=== PATIENT | female | born 1965 | race Caucasian/White ===

== ENCOUNTER → 2017-02-10 | Outpatient (CLI) | payer OTHER | LOC: FIMAGING 10:39 | PROVIDERS: ATTEND Obstetrics & Gynecology | DX: Z12.31 Encounter for screening mammogram for malignant neoplasm of breast (principal) | CPT/HCPCS: G0202 ==

== ENCOUNTER 2017-09-08 11:48 | Day surgery (SDC) | payer OTHER ==
--- NOTE | 2017-09-08 07:33 | PDGENHP ---
History & Physical Chief Complaint: Menorrhagia, Abnormal uterine bleeding, Abnormal pelvic US, Acute anemia History of Present Illness: 52 yo oscar-menopausal female being evaluated for acute anemia in the context of heavy ongoing, irregular bleeding. Had US and EBX in our office and recent H/H showing a Hg of 7.4 - symptomatic from this anemia with dizziness, lightheadedness, fatigue. Discussed options and she's interested in DxHSC with removal of polyp and sampling of endometrium, followed by more definitive solution with endometrial ablation. EBX benign with disordered proliferative endometrium. Pertinent Past, Social, Family History: Non-contributory Relevant Physical Exam: In office: NAD, tired. Heart RRR. Lungs CTAB Assessment & Plan Assessment: 1. Menorrhagia 2. Abnormal uterine bleeding 3. Abnormal pelvic US, question endometrial polyp 4. Acute blood loss anemia Plan: DxHSC, Endometrial polypectomy/sampling PRN, Rachel endometrial ablation - Routine preop orders placed - no abx needed. - CBC and UPT in preop, T&S if not already updated in system. - RBA discussed and consents signed in office at preop visit, will give postop RX for [place] and dc instruction sheet in PACU.
[2017-09-08] MEDS ORDERED: LR 1,000 ML IV ONE (12:26)
[2017-09-08 12:32] VITALS: PULSE 74
[2017-09-08 13:28] LABS: PLATELET COUNT 275 10^3/uL (150-400)
[2017-09-08] MEDS ORDERED: MIDAZOLAM 2 MG/2 ML VIAL IVP ONE (14:26)
--- NOTE | 2017-09-08 14:26 | PDANEPAE ---
ANE History of Present Illness Anemia secondary to uterine bleeding ANE Past Medical History - Cardiovascular History Hx Hypertension: No Hx Arrhythmias: No Hx Chest Pain: No Hx Coronary Artery / Peripheral Vascular Disease: No Hx CHF / Valvular Disease: No Hx Palpitations: No - Pulmonary History Hx COPD: No Hx Asthma/Reactive Airway Disease: No Hx Recent Upper Respiratory Infection: No Hx Oxygen in Use at Home: No Hx Sleep Apnea: No Sleep Apnea Screening Result - Last Documented: Negative - Neurologic History Hx Cerebrovascular Accident: No Hx Seizures: No Hx Dementia: No Neurologic History Comment: MIGRAINES OCCAS - Endocrine History Hx Diabetes: No - Renal History Hx Renal Disorders: No Renal History Comment: POLYCYSTIC R KIDNEY SINCE 20s - Liver History Hx Hepatic Disorders: No - Neurological & Psychiatric Hx Hx Neurological and Psychiatric Disorders: No - Cancer History Hx Cancer: No - Congenital Disorder History Hx Congenital Disorders: No - GI History Hx Gastrointestinal Disorders: No - Other Health History Other Health History: ANEMIA - CAUSED BY EXCESSIVE MENSES/BLEEDING X ONE MONTH - Chronic Pain History Chronic Pain: Yes (ARTHRITIS TU KNEES) - Surgical History Prior Surgeries: D&C X2 ANE Review of Systems Review of Systems: - Exercise capacity METS (RN): 4 METS ANE Patient History - Allergies Allergies/Adverse Reactions: No Known Allergies Allergy (Unverified 09/01/17 14:54) - Home Medications Home Medications: Iron 09/01/17 [Last Taken 1 Day Ago ~09/07/17] Multivitamin 09/01/17 [Last Taken 1 Week Ago ~09/01/17] - NPO status NPO Since - Liquids (Date): 09/07/17 NPO Since - Liquids (Time): 20:00 NPO Since - Solids (Date): 09/07/17 NPO Since - Solids (Time): 20:00 - Anes Hx Anes Hx: no prior problems - Smoking Hx Smoking Status: Never smoked - Family Anes Hx Family Hx Anesthesia Complications: NEG ANE Labs/Vital Signs - Labs Result Diagrams: 09/08/17 07:28 - Vital Signs Blood Pressure: 132/98 Heart Rate: 74 Respiratory Rate: 18 O2 Sat (%): 93 Height: 162.56 cm Weight: 77.111 kg ANE Physical Exam - Airway Neck exam: FROM Mallampati Score: Class 2 Mouth exam: normal dental/mouth exam - Pulmonary Pulmonary: no respiratory distress - Cardiovascular Cardiovascular: regular rate and rhythym - ASA Status ASA Status: II ANE Anesthesia Plan Anesthesia Plan: GA w LMA, MAC
[2017-09-08] MEDS ORDERED: BUPIVACAINE 0.25% 30 ML SDV ONE (14:29)
[2017-09-08] MEDS ORDERED: SILVER NITRATE APPLICATOR 1 APPL TP ONE (14:30)
[2017-09-08] MEDS ORDERED: MIDAZOLAM 2 MG/2 ML VIAL ONE (14:35)
[2017-09-08] MEDS ORDERED: fentaNYL 100 MCG/2 ML INJ ONE (14:39)
[2017-09-08] MEDS ORDERED: PROPOFOL/EMULSION 500 MG/50 ML BOTTLE IV ONE (14:39)
[2017-09-08] MEDS ORDERED: LIDOCAINE 2% 5 ML SDV ONE (14:41)
[2017-09-08] MEDS ORDERED: OPIUM/BELLADONNA ALKALO SUPP PR ONE (14:48)
[2017-09-08] MEDS ORDERED: PROPOFOL 200 MG/20 ML VIAL ONE (15:23)
[2017-09-08] MEDS ORDERED: PROMETHAZINE HCL 25 MG/ML INJ IVP PRN (15:34)
[2017-09-08] MEDS ORDERED: fentaNYL 100 MCG/2 ML INJ IVP PRN (15:34)
[2017-09-08] MEDS ORDERED: NALOXONE HCL 0.4 MG/ML INJ IVP PRN (15:34)
[2017-09-08] MEDS ORDERED: ONDANSETRON 4 MG/2 ML VIAL IVP PRN (15:34)
--- NOTE | 2017-09-08 15:49 | POSTANESTH ---
Post Anesthetic Evaluation Cardiovascular Status: Normal, Stable Respiratory Status: Normal, Stable Level of Consciousness/Mental Status: Can Participate in Eval Pain Control: Adequate, Prn Tx Ordered Nausea/Vomiting Control: Adequate, Prn Tx Ordered Complications Possibly Related to Anesthesia: None Noted
--- NOTE | 2017-09-08 16:07 | SUROPNOTE ---
[facility] Operative Report - Surgery Date of Operation: 09/08/17 Surgeon: Nate Gomez Reactor Kettle Operator: None Anesthesia: IV Sedation (MAC) Pre-op Diagnosis: Menorrhagia, Acute blood loss anemia Post-op Diagnosis: Endometrial polyps, Same Procedure: Dx hysteroscopy, Endometrial polypectomy/sampling, Endometrial ablation Findings: Normal external genitalia, mult small endometrial polyps, normal cavity Inf/Abcess present in the surg proc area at time of surgery?: No EBL: Minimal Total fluids administered: Deficit 400cc Complications: None Specimen(s): Endometrial polyp fragments and sampling Technique: The patient was taken to the operating room where her identity and planned procedure were confirmed during time-out. The patient was placed under general anesthesia without issue. When anesthesia was found to be adequate, the patient was prepped and draped in the normal sterile fashion in dorsal lithotomy position in Remigio stirrups. No antibiotics were indicated nor given. She had voided just prior to OR so no catheterization was needed. A paracervical block was placed with 5cc of local anesthetic with epi at 4:00 and 8:00 locations at the cervico-vaginal junction. Anterior lip was grasped with a single tooth tenaculum at the 12 o'clock position. A uterine sound was then passed through the cervical os to the uterine fundus giving a sounding length of 9cm. The cervical length was measured at 2.5cm, giving us a cavity length of 6.5cm. The cervix was serially dilated to allow the 6mm hysteroscope. This scope was inserted and multiple polyps visualized, which were subsequently removed with the TruClear device. Throughout hysteroscopy some fluid was not being caught by the under-buttock drape and ended up on the floor , distorting our fluid deficit. The scope was removed and the cervix dilated to 8mm to allow Rachel device. Settings entered into generator, device inserted per protocol. Cavity assessment initiated and passed, then the treatment cycle completed full 120seconds of ablation without issue. Device removed and hysteroscope re-inserted. Visualized uniform cautery across all surfaces and into both cornua - excellent result visually. The scope was removed. The tenaculum was removed from the cervix and the tenaculum sites were found to be hemostatic after application of silver nitrate. B&O suppository placed. Sponge, lap, needle, and instrument counts were announced as as correct. I was scrubbed and present for the entire case.
[2017-09-08 16:48] VITALS: TEMP 97.5
[2017-09-08 17:05] VITALS: RESP 16
[2017-09-08 17:07] VITALS: BP 120/87; O2SAT 95
== END 2017-09-08 18:00 | disposition home or self-care (01) ==
LOC: FSGY 11:48
PROVIDERS: ATTEND Obstetrics & Gynecology
DX: N92.0 Excessive and frequent menstruation with regular cycle (principal); N93.9 Abnormal uterine and vaginal bleeding, unspecified; D62 Acute posthemorrhagic anemia; N84.0 Polyp of corpus uteri
CPT/HCPCS: 58563; C1782; J0171; J2250; J2704; J3010